=== PATIENT | female | born 1995 | race Hispanic/Latino ===

== ENCOUNTER 2016-07-22 16:34 | Outpatient (CLI) | payer MEDICAID ==
[2016-07-22 17:30] VITALS: BP 115/69
== END 2016-07-22 17:30 | disposition home or self-care (01) ==
LOC: TRG 16:34
PROVIDERS: ATTEND Obstetrics & Gynecology
DX: O47.1 False labor at or after 37 completed weeks of gestation (principal); Z3A.39 39 weeks gestation of pregnancy
CPT/HCPCS: 59025

== ENCOUNTER 2016-07-27 12:11 | Outpatient (CLI) | payer MEDICAID ==
[2016-07-27 13:43] VITALS: BP 114/64
[2016-07-27 14:08] LABS: Bilirubin,Urine NEG (Negative); Blood,Urine NEG (Negative); Ketones,Urine NEG (Negative); Leukocyte Esterase,Urine TR (Negative); Mucus,Urine 2+ /HPF; Nitrite,Urine NEG (Negative)
--- NOTE | 2016-07-27 16:10 | Ultrasound Report ---
BIOPHYSICAL PROFILE: INDICATION: well being. 40 weeks gestation. COMPARISON: None similar during this gestation. TECHNIQUE: Transabdominal ultrasound with Doppler interrogation. 2 - breathing movements 2 - movements 2 - posture and tone 2 - Qualitative amniotic fluid volume 8 - TOTAL SCORE OF POSSIBLE 8 Heart Rate (bpm) 158
--- NOTE | 2016-07-27 16:11 | Ultrasound Report ---
OB LIMITED INDICATION: well being, EVE. 40 weeks gestation. COMPARISON: None similar during this gestation. TECHNIQUE: Transabdominal grayscale ultrasound with Doppler interrogation. Gestation: [place] Position: Cephalic Amniotic Fluid: WNL (7-24 cm) EVE = 12.9 cm Heart Rate: 158 BPM
== END 2016-07-27 16:25 | disposition home or self-care (01) ==
LOC: TRG 12:11
PROVIDERS: ATTEND Obstetrics & Gynecology
DX: O48.0 Post-term pregnancy (principal); Z3A.40 40 weeks gestation of pregnancy
CPT/HCPCS: 59025; 76815; 76819; 81001

== ENCOUNTER 2016-07-31 18:05 | Inpatient (IN) | payer MEDICAID ==
--- NOTE | 2016-07-31 18:57 | History and Physical Report ---
History of Present Illness Date of examination: 07/31/16 Chief complaint: Active labour History of present illness: 21-year-old 002 at 40+4 presents in active labor, She is a [facility] patient. course has been unremarkable. She is GBS negative Past History Past Medical History: asthma (mild) Past Surgical History: tonsillectomy [employer] History: denies: cancer, chlamydia, fibroids, gonorrhea, hepatitis B, hepatitis C, HIV, syphilis Social history: single, full code. denies: Lives alone, lives with family, smoking, alcohol abuse, prescription drug abuse - Obstetrical History Expected Date of Delivery: 07/27/16 Actual Gestation: 40 Week(s) 4 Day(s) : 3 Para: 2 Number of Living Children: 2 Medications and Allergies Allergies Allergy/AdvReac Type Severity Reaction Status Date / Time No Known Allergies Allergy Verified 11/17/14 19:51 Home Medications Medication Instructions Recorded Confirmed Last Taken Type Ferrous Sulfate [Feosol 325 MG tab] 325 mg PO BID #60 tablet 07/04/13 11/18/14 11/17/14 Rx Tablet 1 tab PO DAILY 11/17/14 11/17/14 11/17/14 History 1 tab Review of Systems Constitutional: no fever, no chills, no sweats Cardiovascular: no chest pain, no orthopnea, no palpitations, no edema Respiratory: no cough, no hemoptysis, no shortness of breath, no dyspnea on exertion Gastrointestinal: abdominal pain (Painful contractions), no nausea, no vomiting Genitourinary: no vaginal bleeding, no vaginal discharge, no leakage of fluid - Physical Exam Cardiovascular: Regular rate, Normal S1, Normal S2 Lungs: Positive: Clear to auscultation, Normal air movement Abdomen: Positive: normal appearance, soft. Negative: distention, tenderness, guarding, rigidity Genitourinary (Female): Positive: normal external genitalia Uterus: Positive: enlarged (EFW ~ 3500) Adnexa: both: normal Extremities: Positive: normal - Obstetrical FHR: category 1 Cervical Dilatation: 6 Results All other labs normal. Assessment and Plan A: 21 y/o at 40+4 wks in active labour -cat 1 tracing P: -Admit -Routine labs -Declines epidural -Anticipate normal vaginal delivery - Patient Problems (1) 40 weeks gestation of Current Visit: Yes Status: Acute (2) Active labor at term Onset Date: 07/03/13 Current Visit: No Status: Acute
[2016-07-31] MEDS ORDERED: BRETHINE SUB-Q PRN (18:59)
[2016-07-31] MEDS ORDERED: XYLOCAINE 2% INFILTRATI ONE (18:59)
[2016-07-31] MEDS ORDERED: MINERAL OIL PO PRN (18:59)
[2016-07-31] MEDS ORDERED: SUBLIMAZE IV PRN (18:59)
[2016-07-31] MEDS ORDERED: ePHEDrine SULFATE IV PRN (18:59)
[2016-07-31] MEDS ORDERED: ZOFRAN IV PRN ×2 (18:59→21:06)
[2016-07-31] MEDS ORDERED: BRETHINE IVP PRN (18:59)
[2016-07-31] MEDS ORDERED: PITOCin/NS 30 UNIT/500ML 30 UNITS/500 ML BAG IV SCH ×2 (19:00)
[2016-07-31] MEDS ORDERED: PITOCin/NS 20 UNIT/1000ML DRIP 20 UNITS/1,000 ML BAG IV SCH ×2 (19:00→22:00)
[2016-07-31] MEDS ORDERED: LACTATED RINGERS 1,000 ML IV SCH (19:00)
[2016-07-31 20:01] LABS: Basophils % (Auto) 0.2 % (0.0-1.8); Eosinophils % (Auto) 0.2 % (0.0-4.3); Hematocrit 27.3 % (30.3-42.9); Hemoglobin 8.5 gm/dl (10.1-14.3); Mean Corpuscular HGB Conc 31 % (30-34); Mean Corpuscular Volume 72 fl (79-97); Platelet Count 110 K/mm3 (140-440); Red Blood Count 3.79 M/mm3 (3.65-5.03); Red Cell Distribution Width 17.2 % (13.2-15.2); White Blood Count 10.6 K/mm3 (4.5-11.0)
[2016-07-31 20:17] LABS: Mean Corpuscular Hemoglobin 22 pg (28-32)
[2016-07-31] MEDS ORDERED: METHERGINE IM ONE (20:59)
[2016-07-31] MEDS ORDERED: TUCKS PAD TP PRN (21:06)
[2016-07-31] MEDS ORDERED: MILK OF MAGNESIA PO PRN (21:06)
[2016-07-31] MEDS ORDERED: PHENERGAN PO PRN (21:06)
[2016-07-31] MEDS ORDERED: NORCO 5/325 PO PRN (21:06)
[2016-07-31] MEDS ORDERED: BENADRYL PO PRN (21:06)
[2016-07-31] MEDS ORDERED: DULCOLAX PR PRN (21:06)
[2016-07-31] MEDS ORDERED: ANUCORT-HC PR PRN (21:06)
[2016-07-31] MEDS ORDERED: DERMOPLAST TP PRN (21:06)
[2016-07-31] MEDS ORDERED: PHENERGAN PR PRN (21:06)
[2016-07-31] MEDS ORDERED: TYLENOL PO PRN (21:06)
--- NOTE | 2016-07-31 21:06 | Procedure Note ---
OB Delivery Note - Delivery Date of Delivery: 07/31/16 Surgeon: KOLTON RAMIREZ Estimated blood loss: 200cc - Vaginal Delivery presentation: vertex Delivery position: OA Intrapartum events: precipitous labor- <3hr Delivery induction: none Delivery augmentation: rupture of membranes Delivery monitor: external FHT, external uterine Route of delivery: Delivery placenta: spontaneous Episiotomy: none Delivery laceration: none Anesthesia: none - Infant A at 1 minute: 8 at 5 minutes: 9 Infant Gender: Female (Del @ 20:49, weight is 6#1 or 2758 g)
[2016-07-31] MEDS ORDERED: SODIUM CHLORIDE FLUSH SYRINGE 10 ML IV PRN (22:00)
[2016-07-31] MEDS ORDERED: SENOKOT S PO SCH (22:00)
[2016-07-31] MEDS: MOTRIN PO SCH (23:46)
[2016-07-31] MEDS: FEOSOL PO SCH (23:46)
[2016-07-31] MEDS: LANSINOH TP PRN (23:47)
[2016-07-31] MEDS: COLACE PO SCH (23:47)
[2016-08-01] MEDS ORDERED: METHERGINE IM ONE (00:23)
[2016-08-01] MEDS: MOTRIN PO SCH ×3 (05:18→17:50)
[2016-08-01] MEDS ORDERED: BOOSTRIX IM ONE (06:00)
[2016-08-01 09:12] LABS: Hematocrit 23.6 % (30.3-42.9); Hemoglobin 7.4 gm/dl (10.1-14.3)
--- NOTE | 2016-08-01 09:37 | Progress Note ---
Assessment and Plan PPD# 1 s/p -Doing well P: -Continue routine care -Anticipate discharge in 24-48 hours - Patient Problems (1) Status post normal vaginal delivery Onset Date: 07/04/13 Current Visit: No Status: Acute (2) 40 weeks gestation of Current Visit: Yes Status: Acute (3) Active labor at term Onset Date: 07/03/13 Current Visit: No Status: Acute Subjective - Subjective Date of service: 08/01/16 Principal diagnosis: PPD# 1 Interval history: Patient seen and examined, stable doing well no issues Patient reports: appetite normal, voiding normally, pain well controlled, flatus , ambulating normally, no dizzy ambulation, no nauseated [place]: doing well Objective - Vital Signs Latest vital signs: Vital Signs Temp Pulse Pulse Resp BP BP Pulse Ox 08/01/16 04:00 98.6 F 88 22 129/70 08/01/16 03:30 18 07/31/16 23:15 98.6 F 82 22 131/82 07/31/16 22:56 98.7 F 83 18 125/79 98 07/31/16 22:51 64 98 07/31/16 22:46 62 98 07/31/16 22:41 64 97 07/31/16 22:37 65 134/84 07/31/16 22:36 69 98 07/31/16 22:31 61 97 07/31/16 22:26 62 97 07/31/16 22:22 63 140/88 07/31/16 22:21 62 97 07/31/16 22:16 64 98 07/31/16 22:15 98.5 F 62 62 18 137/76 137/76 07/31/16 22:11 62 98 07/31/16 22:06 64 99 07/31/16 22:00 68 99 07/31/16 21:53 72 129/71 07/31/16 21:45 98.5 F 62 18 140/88 98 07/31/16 21:37 91 H 134/76 07/31/16 21:36 98.5 F 88 91 H 18 134/76 93 07/31/16 21:33 67 98 07/31/16 21:28 77 98 07/31/16 21:23 86 99 07/31/16 21:22 81 132/78 07/31/16 21:21 82 130/79 04/03/17 21:18 75 98 07/31/16 21:13 84 98 07/31/16 21:11 98.3 F 83 18 130/79 99 07/31/16 21:08 82 98 07/31/16 21:00 18 07/31/16 20:58 85 125/79 07/31/16 20:41 87 99 07/31/16 20:40 101 H 92 07/31/16 20:36 103 H 99 07/31/16 20:31 82 99 07/31/16 20:30 86 118/58 07/31/16 20:26 86 98 07/31/16 20:21 89 98 07/31/16 20:16 80 98 07/31/16 20:11 80 98 07/31/16 20:06 79 99 07/31/16 20:01 78 98 07/31/16 19:58 85 118/67 07/31/16 19:56 78 99 07/31/16 19:51 84 98 07/31/16 19:46 86 98 07/31/16 19:41 87 98 07/31/16 19:36 74 98 07/31/16 19:31 81 100 07/31/16 19:28 85 94 07/31/16 19:26 82 99 07/31/16 19:21 97 H 97 07/31/16 19:15 98.0 F 84 18 126/76 99 07/31/16 19:14 81 126/76 07/31/16 19:13 77 99 Intake and Output 07/31/16 08/01/16 08/01/16 22:59 06:59 14:59 Intake Total 1925 Output Total 1400 Balance 525 Intake: IV 625 PITOCin/NS 20 UNIT/1000ML 625 DRIP 20 units In 1,000 ml @ 125 mls/hr IV DIRECT LAMBERT Rx#:[id number] Oral 650 Intake, Free Water 650 Output: Urine 1400 Void 1400 Other: Total, Intake Amount 350 Total, Output Amount 600 # Voids Void 1 Weight 105.233 kg Estimated Blood Loss 200 - Exam Abdomen: Present: normal appearance, soft. Absent: distention, tenderness, guarding, rigidity Uterus: Present: fundal height below umbilicus. Absent: tenderness - Labs Labs: Abnormal lab results 07/31/16 08/01/16 Range/Units 19:35 08:51 Hgb 8.5 L 7.4 L (10.1-14.3) gm/dl Hct 27.3 L 23.6 L (30.3-42.9) % MCV 72 L (79-97) fl MCH 22 L (28-32) pg RDW 17.2 H (13.2-15.2) % Plt Count 110 L (140-440) K/mm3 Seg Neutrophils % 77.5 H (40.0-70.0) % Seg Neutrophils # 8.2 H (1.8-7.7) K/mm3
--- NOTE | 2016-08-01 09:38 | Discharge Summary ---
Providers - Providers Date of Admission: 07/31/16 19:20 Date of discharge: 08/02/16 Attending physician: KOLTON RAMIREZ Primary care physician: KOLTON RAMIRZE Hospitalization Reason for admission: active labor Delivery: Episiotomy: none Laceration: none Other procedures: none complications: none Discharge diagnosis: IUP at term delivered baby: female Hospital course: Uncomplicated course Condition at discharge: Good Disposition: DISCHARGED TO HOME OR SELFCARE - Discharge Diagnoses (1) Status post normal vaginal delivery Status: Acute (2) 40 weeks gestation of Status: Acute (3) Active labor at term Status: Acute Plan - Discharge Medications Prescriptions: HYDROcodone/APAP 5-325 [[place] 5/325] 1 each PO Q6HR PRN #10 tablet PRN Reason: Pain Ibuprofen [Motrin 600 MG tab] 600 mg PO Q8H PRN #30 tablet PRN Reason: Pain Multivitamin with Iron [Multivitamins with Iron] 1 each PO DAILY #30 tablet - Provider Discharge Summary Activity: routine, no sex for 6 weeks, no heavy lifting 4 weeks, no strenuous exercise Diet: routine Additional instructions: [] Smoking cessation referral if applicable(refer to patient education folder for contact #) [] Refer to [facility] Booklet Call your doctor immediately for: * Fever > 100.5 * Heavy vaginal bleeding ( >1 pad per hour) * Severe persistent headache * Shortness of breath * Reddened, hot, painful area to leg or breast * Drainage or odor from incision. * Keep incision clean and dry at all times and follow doctor's instructions regarding bathing/showering - Follow up plan Follow up: KOLTON RAMIREZ MD [Primary Care Provider] - 6 Weeks
[2016-08-01] MEDS ORDERED: PRENATAL VITAMIN PO SCH (10:00)
[2016-08-01] MEDS: FEOSOL PO SCH ×2 (10:19→23:01)
[2016-08-01] MEDS: COLACE PO SCH ×2 (10:19→23:03)
[2016-08-01] MEDS: LANSINOH TP PRN (19:42)
[2016-08-02] MEDS: MOTRIN PO SCH (06:33)
[2016-08-02 08:48] VITALS: BP 130/74
== END 2016-08-02 10:25 | disposition home or self-care (01) | DRG 775 ==
LOC: TRG 18:05 → LD 19:20 → OB 23:09
PROVIDERS: ADMIT Obstetrics & Gynecology Gynecology; ATTEND Obstetrics & Gynecology Gynecology
PROC: 10E0XZZ Delivery of Products of Conception, External Approach (ICD-10-PCS; principal; 2016-07-31)
DX: O62.3 Precipitate labor (principal); O99.52 Diseases of the respiratory system complicating childbirth; J45.909 Unspecified asthma, uncomplicated; Z3A.40 40 weeks gestation of pregnancy; Z37.0 Single live birth
CPT/HCPCS: 36415; 85014; 85018; 85025; 86850; 86900; 86901; 90471; 90715; 99211; A6250; G0463; J2210; J2590; J3010; J7120

== ENCOUNTER 2020-12-01 15:14 | Emergency (ER) | payer MEDICAID | END 2020-12-01 17:00 | disposition left against medical advice (07) | LOC: ED 15:14 | DX: Z04.1 Encounter for examination and observation following transport accident (principal); Z53.21 Procedure and treatment not carried out due to patient leaving prior to being seen by health care provider; V87.7XXA Person injured in collision between other specified motor vehicles (traffic), initial encounter; Y93.89 Activity, other specified; Y92.488 Other paved roadways as the place of occurrence of the external cause; Y99.8 Other external cause status ==

== ENCOUNTER 2021-04-19 09:47 | Outpatient (CLI) | payer MEDICAID ==
[2021-04-19 10:39] VITALS: BP 108/63
[2021-04-19] MEDS ORDERED: LACTATED RINGERS 0 ML ONE (10:56)
--- NOTE | 2021-04-19 12:02 | Ultrasound Report ---
US OB limited, US OB BPP wo non-stress INDICATION / CLINICAL INFORMATION: DECREASED MOVEMENT - EVE. COMPARISON: None available. FINDINGS: BREATHING MOVEMENT = 2 GROSS BODY MOVEMENT = 2 TONE = 2 QUALITATIVE AMNIOTIC FLUID VOLUME = 2 TOTAL BIOPHYSICAL SCORE = 8/8 AMNIOTIC FLUID INDEX (cm) = 16.5 PRESENTATION: Cephalic. HEART RATE (beats per minute): 133 Additional findings: Anterior placenta appears unremarkable. IMPRESSION: 1. Single live intrauterine , as detailed above. No significant abnormality. 2. biophysical profile = 12/05 3. Normal EVE, measuring 16.5 cm. Signer Name: Avery Nicole MD Signed: 04/19/2021 11:57 AM Workstation Name: [id number]
== END 2021-04-19 12:12 | disposition home or self-care (01) ==
LOC: TRG 09:47 → APU 09:48 → TRG 12:12
PROVIDERS: ATTEND Obstetrics & Gynecology
DX: Z34.93 Encounter for supervision of normal pregnancy, unspecified, third trimester (principal); Z3A.38 38 weeks gestation of pregnancy
CPT/HCPCS: 59025; 76815; 76819

== ENCOUNTER 2021-04-29 10:15 | Outpatient (CLI) | payer MEDICAID ==
[2021-04-29 10:44] VITALS: BP 129/79
--- NOTE | 2021-04-29 12:21 | Ultrasound Report ---
OB ultrasound Biophysical profile INDICATION: well-being FINDINGS: The biophysical profile measures 8 out of 8 with heart rate of 141. Single live intra uterine in cephalic position with an EVE measuring 18.4 cm. heart rate is 1 46 bpm. IMPRESSION: Normal biophysical profile. Single live intrauterine . EVE measures 18.4 cm Signer Name: Naresh Sher MD Signed: 04/29/2021 12:17 PM Workstation Name: [id number]
== END 2021-04-29 12:15 | disposition home or self-care (01) ==
LOC: TRG 10:15 → APU 10:16 → TRG 12:15
PROVIDERS: ATTEND Obstetrics & Gynecology
DX: Z34.93 Encounter for supervision of normal pregnancy, unspecified, third trimester (principal); Z3A.37 37 weeks gestation of pregnancy
CPT/HCPCS: 76815; 76819